=== PATIENT | male | born 1990 | race Caucasian/White ===

== ENCOUNTER 2018-07-04 14:25 | Emergency (ER) | payer MEDICAID ==
[~2018-07-04] VITALS: Ht 188 cm; Wt 80.0 kg
[~2018-07-04 14:25] MED LIST: FLUT16SP2 NS; NO HOME MEDS
[2018-07-04 14:29] VITALS: BP 135/72
[2018-07-04] MEDS ORDERED: LIDOcaine 1% w/epiNEPHrine 1:200,000 30ml vial IM ONE (15:20)
[2018-07-04] MEDS ORDERED: AMOX-580 PO (15:44)
[2018-07-04] MEDS ORDERED: IBUP-1984 PO (15:44)
--- NOTE | 2018-07-04 15:59 | NUR ---
PT UP FOR TX AND DC. ASKED PRIMARY RN IF PT IS READY FOR DC AND WAS TOLD YES. WALKED INTO PT'S ROOM AND FOUND THAT PROVIDER WAS JUST STARTING PROCEDURE. PRIMARY RN NOTIFIED AND PT WAS PLACED ON A PRODEDURE WAIT
== END 2018-07-04 16:09 | disposition home or self-care (01) ==
LOC: ER 14:26
DX: K13.0 Diseases of lips (principal); F12.90 Cannabis use, unspecified, uncomplicated; J45.909 Unspecified asthma, uncomplicated; Z79.899 Other long term (current) drug therapy
CPT/HCPCS: 10160; 99284; J3490; 10060; 99283

== ENCOUNTER 2020-11-17 23:51 | Inpatient (IN) | payer MEDICAID ==
[~2020-11-17] VITALS: Ht 177.8 cm; Wt 81.8 kg
[2020-11-18] MEDS ORDERED: cefepime 1GM/NS ADD-VANTAGE 100 ML IV ONE (00:23)
[2020-11-18] MEDS ORDERED: vancomycin/NS 1 GM ADD-VANTAGE 250 ML IV ONE (00:25)
[2020-11-18] MEDS ORDERED: iohexol 350MG/ML 100ml bottle IV ONE (00:25)
[2020-11-18 00:54] LABS: ALANINE AMINOTRANSFERASE 29 U/L (12-78); ALBUMIN 2.9 G/DL (3.4-5.0); ALBUMIN/GLOBULIN RATIO 0.7 (1.1-1.5); ALKALINE PHOSPHATASE 97 IU/L (46-116); ANION GAP 15 (8-16); ASPARTATE AMINO TRANSFERASE 29 U/L (10-37); BILIRUBIN,TOTAL 0.4 MG/DL (0.1-1.0); BLOOD UREA NITROGEN 8 MG/DL (7-18); CALCIUM 8.8 MG/DL (8.5-10.1); CHLORIDE 105 MMOL/L (99-107); CREATININE 0.89 MG/DL (0.60-1.10); GLUCOSE 100 MG/DL (70-104); POTASSIUM 4.1 MMOL/L (3.5-5.1); SODIUM 137 MMOL/L (135-145); TOTAL CARBON DIOXIDE 17.4 MMOL/L (24-32); TOTAL PROTEIN 7.2 G/DL (6.4-8.2); eGFR > 90 ML/MIN
[2020-11-18 01:03] LABS: HEMOGLOBIN 13.8 g/dl (14.0-17.9); MONOCYTES # (AUTO) 0.9 X10'3 (0-0.9); WHITE BLOOD COUNT 9.6 X10'3 (4.5-11.0)
[2020-11-18 01:05] LABS: BASOPHILS # (AUTO) 0.1 X10'3 (0-0.2); BASOPHILS % (AUTO) 0.5 % (0-1); EOSINOPHILS % (AUTO) 0.5 % (0-6); HEMATOCRIT 40.6 % (42.0-52.0); LYMPHOCYTES # (AUTO) 3.4 X10'3 (1.1-4.8); LYMPHOCYTES % (AUTO) 35.2 % (21-51); MEAN CORPUSCULAR HEMOGLOBIN 31.8 PG (27.0-31.0); MEAN CORPUSCULAR VOLUME 93.6 FL (78-98); MONOCYTES % (AUTO) 9.4 % (2-12); NEUTROPHILS # (AUTO) 5.2 X10'3 (1.8-7.7); NEUTROPHILS % (AUTO) 54.4 % (42-75); PLATELET COUNT 326 X10'3 (140-440); RED BLOOD COUNT 4.34 X10'6 (4.70-6.10); RED CELL DISTRIBUTION WIDTH 13.3 % (11.5-14.5)
[2020-11-18 01:33] LABS: PARTIAL THROMBOPLASTIN TIME 30 SECONDS (22-32)
[2020-11-18] MEDS ORDERED: NO HOME MEDS (02:44)
[2020-11-18] MEDS ORDERED: mag hydrox/Alum hydrox/simeth 30ml oral suspension PO PRN (03:40)
[2020-11-18] MEDS ORDERED: thiamine 100mg/ml 2ml inj. IM ONE (03:40)
[2020-11-18] MEDS ORDERED: potassium Cl 40MEQ/1/2NS 520ml 520 ML IV PRN ×2 (03:40)
[2020-11-18] MEDS ORDERED: acetaminophen 325mg tablet PO PRN (03:40)
[2020-11-18] MEDS ORDERED: potassium Cl 20 mEq SR tablet PO PRN ×2 (03:40)
[2020-11-18] MEDS ORDERED: magnesium hydroxide 30ml (MOM) UD suspension PO PRN (03:40)
[2020-11-18] MEDS ORDERED: ondansetron/PF 4mg/2ml inj IV PRN (03:40)
[2020-11-18] MEDS ORDERED: LORazepam 2 mg/ml vial IV PRN (03:45)
[2020-11-18] MEDS: normal saline 1000ml 1,000 ML IV SCH ×3 (03:54→21:44)
[2020-11-18] MEDS: morphine 2 MG/ML inj. syringe IV PRN (04:08)
[2020-11-18] MEDS: docusate sod 100mg capsule PO SCH ×2 (08:00→20:00)
[2020-11-18] MEDS: K and/or MAG REPLACEMENT MC SCH ×2 (08:00→20:00)
[2020-11-18] MEDS ORDERED: PERFLUTREN PROTEIN-A MICROSPHR (Optison) 0.22 MG/ML 3ML VIAL IV ONE (08:00)
--- NOTE | 2020-11-18 08:06 | NUR ---
WAITING FOR ROCDEBBYHIN FROM PHARMACY PER MARÍA IT IS GOING TO TAKE HALF AN HOUR TO GET READY , THEY DIDN'T HAD TECH LAST NIGHT AND THEY ARE RUNNING LATE.
--- NOTE | 2020-11-18 08:18 | NUR ---
NOTIFIED CHARGE NURSE THAT SURGICAL IS NOT ACCEPTING THE PT PER COUNTY AGENT ORDERS.
[2020-11-18] MEDS: CefTRIAXone/D5W-Rocephin 1gm 50 ML IV SCH (09:22)
--- NOTE | 2020-11-18 10:25 | NUR ---
optison not to be given as it would be used for echo at night time. Thats why non admin the med.
[2020-11-18 11:00] VITALS: BP 109/77
[2020-11-18 11:09] LABS: URINE AMPHETAMINE SCREEN POSITIVE (Neg); URINE BARBITUATE SCREEN NEGATIVE (Neg); URINE BENZODIAZEPINES SCREEN NEGATIVE (Neg); URINE CANNABINOID SCREEN NEGATIVE (Neg); URINE COCAINE SCREEN NEGATIVE (Neg); URINE METHADONE SCREEN NEGATIVE (Neg); URINE OPIATE SCREEN POSITIVE (Neg); URINE PHENCYCLIDINE SCREEN NEGATIVE (Neg)
[2020-11-18 11:32] VITALS: BP 113/70
--- NOTE | 2020-11-18 12:20 | NUR ---
PAGER ID: [phone] MESSAGE: Kortney Burdick 340B Pt. wants to eat. is he going to sx today? Also states he has not used meth but takes nonprescribed Adderall. Will order SS consult. RT tx? lactic redraw? Christina [phone]
[2020-11-18 18:00] VITALS: BP 114/78
--- NOTE | 2020-11-18 18:37 | NUR ---
Patient in room [facility]. I have received report from SALEEM Vasquez and had the opportunity to ask questions and assume patient care.
[2020-11-18] MEDS: guaiFENesin/codeine phos 10ml UD oral syrup PO PRN (22:34)
--- NOTE | 2020-11-18 23:24 | NUR ---
Student Medication Administration: For this medication-pass time frame, all medication were reviewed, dispensed, administered and documented per hospital policy by Lorin WATERS [facility]..
[2020-11-19] VITALS (7 sets, daily range): BP systolic 99–119; BP diastolic 63–78
[2020-11-19 06:04] LABS: BASOPHILS % (AUTO) 0.3 % (0-1); EOSINOPHILS # (AUTO) 0.1 X10'3 (0-0.9); EOSINOPHILS % (AUTO) 0.8 % (0-6); HEMATOCRIT 40.1 % (42.0-52.0); HEMOGLOBIN 13.3 g/dl (14.0-17.9); LYMPHOCYTES # (AUTO) 2.6 X10'3 (1.1-4.8); LYMPHOCYTES % (AUTO) 28.7 % (21-51); MEAN CORPUSCULAR HEMOGLOBIN 31.9 PG (27.0-31.0); MEAN CORPUSCULAR HGB CONC 33.2 g/dL (33.0-36.5); MEAN CORPUSCULAR VOLUME 96.1 FL (78-98); MEAN PLATELET VOLUME 8.2 FL (7.4-10.4); MONOCYTES % (AUTO) 11.2 % (2-12); NEUTROPHILS # (AUTO) 5.3 X10'3 (1.8-7.7); PLATELET COUNT 318 X10'3 (140-440); RED BLOOD COUNT 4.17 X10'6 (4.70-6.10); RED CELL DISTRIBUTION WIDTH 13.4 % (11.5-14.5)
--- NOTE | 2020-11-19 06:08 | NUR ---
Problems reprioritized. Patient report given, questions answered & plan of care reviewed with SALEEM Blue.
[2020-11-19 06:23] LABS: ALANINE AMINOTRANSFERASE 26 U/L (12-78); ALBUMIN 2.5 G/DL (3.4-5.0); ALBUMIN/GLOBULIN RATIO 0.7 (1.1-1.5); ALKALINE PHOSPHATASE 79 IU/L (46-116); ANION GAP 10 (8-16); ASPARTATE AMINO TRANSFERASE 23 U/L (10-37); BILIRUBIN,TOTAL 0.6 MG/DL (0.1-1.0); BLOOD UREA NITROGEN 10 MG/DL (7-18); BUN/CREATININE RATIO 11.8 (5.4-32.0); CALCIUM 8.5 MG/DL (8.5-10.1); CHLORIDE 105 MMOL/L (99-107); CREATININE 0.85 MG/DL (0.60-1.10); GLUCOSE 85 MG/DL (70-104); POTASSIUM 3.9 MMOL/L (3.5-5.1); SODIUM 136 MMOL/L (135-145); TOTAL CARBON DIOXIDE 21.3 MMOL/L (24-32); TOTAL PROTEIN 6.3 G/DL (6.4-8.2); eGFR > 90 ML/MIN
--- NOTE | 2020-11-19 06:30 | NUR ---
Patient in room [facility] 340. I have received report from Hong MONGE and had the opportunity to ask questions and assume patient care.
[2020-11-19] MEDS: K and/or MAG REPLACEMENT MC SCH ×2 (08:00→20:00)
[2020-11-19] MEDS: docusate sod 100mg capsule PO SCH ×2 (08:00→20:00)
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
[2020-11-19] MEDS: CefTRIAXone/D5W-Rocephin 1gm 50 ML IV SCH (08:54)
[2020-11-19] MEDS ORDERED: furosemide 20 MG/2 ML vial IV ONE (11:25)
[2020-11-19 11:57] LABS: BODY FLUID PH (NON-PLEURAL) 7.5
[2020-11-19 12:11] LABS: GLUCOSE,BODY FLUID 117 MG/DL
[2020-11-19] MEDS: morphine 2 MG/ML inj. syringe IV PRN ×2 (12:25→20:36)
[2020-11-19 13:26] LABS: TOTAL PROTEIN,BODY FLUID < 2.0 G/DL
[2020-11-19 14:07] LABS: BFAPPEAR HAZY
[2020-11-19 14:08] LABS: BFCOLOR YELLOW; BFVOLUME 60 ML
[2020-11-19 14:09] LABS: BF RBC COUNT 769 /CU MM; BF WBC COUNT 84 /CU MM (0-1000); LYMPHOCYTES,BODY FLUID 68 %; MONOCYTES,BODY FLUID 16 %; NEUTROPHILS,BODY FLUID 16 %
[2020-11-19 14:10] LABS: BF MESOTHELIAL CELLS FEW
--- NOTE | 2020-11-19 18:26 | NUR ---
Problems reprioritized. Patient report given, questions answered & plan of care reviewed with Hong MONGE.
--- NOTE | 2020-11-19 18:34 | NUR ---
Patient in room [facility] 340. I have received report from SALEEM Blue and had the opportunity to ask questions and assume patient care.
[2020-11-19] MEDS: carVEDilol 3.125mg tablet PO SCH (20:26)
[2020-11-19] MEDS: guaiFENesin/codeine phos 10ml UD oral syrup PO PRN (20:26)
[2020-11-19] MEDS: furosemide 20 MG/2 ML vial IV SCH (20:30)
[2020-11-20 00:51] VITALS: BP 104/59
--- NOTE | 2020-11-20 06:07 | NUR ---
Problems reprioritized. Patient report given, questions answered & plan of care reviewed with SALEEM Borden.
[2020-11-20 06:33] LABS: BASOPHILS % (AUTO) 0.2 % (0-1); EOSINOPHILS # (AUTO) 0.1 X10'3 (0-0.9); EOSINOPHILS % (AUTO) 0.8 % (0-6); HEMATOCRIT 41.8 % (42.0-52.0); HEMOGLOBIN 14.4 g/dl (14.0-17.9); LYMPHOCYTES # (AUTO) 1.7 X10'3 (1.1-4.8); LYMPHOCYTES % (AUTO) 20.4 % (21-51); MEAN CORPUSCULAR HEMOGLOBIN 32.8 PG (27.0-31.0); MEAN CORPUSCULAR HGB CONC 34.5 g/dL (33.0-36.5); MEAN PLATELET VOLUME 8.2 FL (7.4-10.4); MONOCYTES # (AUTO) 0.9 X10'3 (0-0.9); MONOCYTES % (AUTO) 10.5 % (2-12); NEUTROPHILS # (AUTO) 5.8 X10'3 (1.8-7.7); NEUTROPHILS % (AUTO) 68.1 % (42-75); PLATELET COUNT 341 X10'3 (140-440); RED CELL DISTRIBUTION WIDTH 13.4 % (11.5-14.5); WHITE BLOOD COUNT 8.5 X10'3 (4.5-11.0)
--- NOTE | 2020-11-20 06:45 | NUR ---
Patient in room [facility] 340B. I have received report from SALEEM JACOBS and had the opportunity to ask questions and assume patient care.
[2020-11-20 07:00] VITALS: BP 106/64
[2020-11-20 07:03] LABS: ALANINE AMINOTRANSFERASE 23 U/L (12-78); ALBUMIN 2.6 G/DL (3.4-5.0); ALBUMIN/GLOBULIN RATIO 0.6 (1.1-1.5); ALKALINE PHOSPHATASE 75 IU/L (46-116); ANION GAP 11 (8-16); ASPARTATE AMINO TRANSFERASE 19 U/L (10-37); BILIRUBIN,TOTAL 0.5 MG/DL (0.1-1.0); BLOOD UREA NITROGEN 9 MG/DL (7-18); BUN/CREATININE RATIO 10.1 (5.4-32.0); CALCIUM 8.9 MG/DL (8.5-10.1); CHLORIDE 106 MMOL/L (99-107); CREATININE 0.89 MG/DL (0.60-1.10); GLUCOSE 100 MG/DL (70-104); POTASSIUM 3.9 MMOL/L (3.5-5.1); SODIUM 142 MMOL/L (135-145); TOTAL CARBON DIOXIDE 24.7 MMOL/L (24-32); TOTAL PROTEIN 6.7 G/DL (6.4-8.2); eGFR > 90 ML/MIN
[2020-11-20] MEDS: furosemide 20 MG/2 ML vial IV SCH ×3 (08:00→20:00)
[2020-11-20] MEDS: K and/or MAG REPLACEMENT MC SCH ×2 (08:00→20:00)
[2020-11-20] MEDS: docusate sod 100mg capsule PO SCH ×2 (08:00→20:00)
[2020-11-20] MEDS: carVEDilol 3.125mg tablet PO SCH ×3 (08:00→20:00)
[2020-11-20 09:13] VITALS: BP 98/60
[2020-11-20] MEDS: CefTRIAXone/D5W-Rocephin 1gm 50 ML IV SCH (09:20)
[2020-11-20 11:02] LABS: TROPONIN I < 0.04 NG/ML (0.0-0.05)
[2020-11-20 12:00] VITALS: BP 100/58
[2020-11-20] MEDS: morphine 2 MG/ML inj. syringe IV PRN ×2 (12:07→20:09)
[2020-11-20 15:05] VITALS: BP 103/58
--- NOTE | 2020-11-20 18:45 | NUR ---
Problems reprioritized. Patient report given, questions answered & plan of care reviewed with SALEEM LONG.
[2020-11-20 20:00] VITALS: BP 96/56
[2020-11-20] MEDS: lactobacillus rhamnosus 10,000 MMU CELLS/CAPSULE PO SCH (20:00)
[2020-11-21] VITALS: BP 100/61
--- NOTE | 2020-11-21 06:10 | NUR ---
Patient in room [facility] 340B. I have received report from SALEEM LONG and had the opportunity to ask questions and assume patient care.
--- NOTE | 2020-11-21 06:11 | NUR ---
Problems reprioritized. Patient report given, questions answered & plan of care reviewed with Suha MONGE. Addendum: 11/21/20 at 0611 by Tess Gomes RN Amended: Links added.
[2020-11-21 06:14] LABS: ALANINE AMINOTRANSFERASE 22 U/L (12-78); ALBUMIN 2.6 G/DL (3.4-5.0); ALBUMIN/GLOBULIN RATIO 0.6 (1.1-1.5); ALKALINE PHOSPHATASE 69 IU/L (46-116); ANION GAP 10 (8-16); ASPARTATE AMINO TRANSFERASE 13 U/L (10-37); BILIRUBIN,TOTAL 0.5 MG/DL (0.1-1.0); BLOOD UREA NITROGEN 9 MG/DL (7-18); BUN/CREATININE RATIO 10.8 (5.4-32.0); CALCIUM 8.4 MG/DL (8.5-10.1); CHLORIDE 103 MMOL/L (99-107); CREATININE 0.83 MG/DL (0.60-1.10); GLUCOSE 97 MG/DL (70-104); POTASSIUM 3.5 MMOL/L (3.5-5.1); SODIUM 138 MMOL/L (135-145); TOTAL CARBON DIOXIDE 24.7 MMOL/L (24-32); TOTAL PROTEIN 6.9 G/DL (6.4-8.2); eGFR > 90 ML/MIN
[2020-11-21 06:22] LABS: BASOPHILS % (AUTO) 0.3 % (0-1); EOSINOPHILS # (AUTO) 0.1 X10'3 (0-0.9); EOSINOPHILS % (AUTO) 0.9 % (0-6); HEMATOCRIT 40.8 % (42.0-52.0); HEMOGLOBIN 13.8 g/dl (14.0-17.9); LYMPHOCYTES % (AUTO) 29.1 % (21-51); MEAN CORPUSCULAR HEMOGLOBIN 32.3 PG (27.0-31.0); MEAN CORPUSCULAR HGB CONC 33.9 g/dL (33.0-36.5); MEAN CORPUSCULAR VOLUME 95.1 FL (78-98); MEAN PLATELET VOLUME 8.5 FL (7.4-10.4); MONOCYTES # (AUTO) 0.8 X10'3 (0-0.9); MONOCYTES % (AUTO) 12.1 % (2-12); NEUTROPHILS # (AUTO) 3.9 X10'3 (1.8-7.7); NEUTROPHILS % (AUTO) 57.6 % (42-75); PLATELET COUNT 328 X10'3 (140-440); RED BLOOD COUNT 4.29 X10'6 (4.70-6.10); RED CELL DISTRIBUTION WIDTH 13.2 % (11.5-14.5); WHITE BLOOD COUNT 6.8 X10'3 (4.5-11.0)
[2020-11-21 07:00] VITALS: BP 109/67
[2020-11-21] MEDS: K and/or MAG REPLACEMENT MC SCH ×2 (08:00→20:00)
[2020-11-21] MEDS: furosemide 20 MG/2 ML vial IV SCH ×2 (09:49→20:32)
[2020-11-21] MEDS: carVEDilol 3.125mg tablet PO SCH ×2 (09:52→20:32)
[2020-11-21] MEDS: lactobacillus rhamnosus 10,000 MMU CELLS/CAPSULE PO SCH ×2 (09:52→20:32)
[2020-11-21] MEDS: docusate sod 100mg capsule PO SCH ×2 (09:52→20:32)
[2020-11-21] MEDS: CefTRIAXone/D5W-Rocephin 1gm 50 ML IV SCH (09:54)
[2020-11-21 11:00] VITALS: BP 95/62
[2020-11-21] MEDS: morphine 2 MG/ML inj. syringe IV PRN ×2 (13:26→22:51)
[2020-11-21 18:00] VITALS: BP 99/60
--- NOTE | 2020-11-21 18:22 | NUR ---
Problems reprioritized. Patient report given, questions answered & plan of care reviewed with SALEEM CHE.
[2020-11-22] VITALS: BP 101/58
[2020-11-22 06:26] LABS: BASOPHILS % (AUTO) 0.3 % (0-1); EOSINOPHILS # (AUTO) 0.1 X10'3 (0-0.9); EOSINOPHILS % (AUTO) 0.9 % (0-6); HEMATOCRIT 41.5 % (42.0-52.0); LYMPHOCYTES # (AUTO) 2.5 X10'3 (1.1-4.8); MEAN CORPUSCULAR HEMOGLOBIN 32.1 PG (27.0-31.0); MEAN CORPUSCULAR HGB CONC 33.7 g/dL (33.0-36.5); MEAN CORPUSCULAR VOLUME 95.2 FL (78-98); MEAN PLATELET VOLUME 8.5 FL (7.4-10.4); MONOCYTES # (AUTO) 0.7 X10'3 (0-0.9); MONOCYTES % (AUTO) 8.6 % (2-12); NEUTROPHILS % (AUTO) 60.2 % (42-75); PLATELET COUNT 333 X10'3 (140-440); RED BLOOD COUNT 4.36 X10'6 (4.70-6.10); RED CELL DISTRIBUTION WIDTH 13.3 % (11.5-14.5); WHITE BLOOD COUNT 8.2 X10'3 (4.5-11.0)
[2020-11-22 06:37] LABS: ALANINE AMINOTRANSFERASE 26 U/L (12-78); ALBUMIN 2.7 G/DL (3.4-5.0); ALBUMIN/GLOBULIN RATIO 0.6 (1.1-1.5); ALKALINE PHOSPHATASE 67 IU/L (46-116); ANION GAP 10 (8-16); ASPARTATE AMINO TRANSFERASE 18 U/L (10-37); BILIRUBIN,TOTAL 0.3 MG/DL (0.1-1.0); BLOOD UREA NITROGEN 11 MG/DL (7-18); BUN/CREATININE RATIO 11.7 (5.4-32.0); CALCIUM 8.6 MG/DL (8.5-10.1); CHLORIDE 105 MMOL/L (99-107); CREATININE 0.94 MG/DL (0.60-1.10); GLUCOSE 101 MG/DL (70-104); POTASSIUM 3.9 MMOL/L (3.5-5.1); SODIUM 141 MMOL/L (135-145); TOTAL CARBON DIOXIDE 26.3 MMOL/L (24-32); TOTAL PROTEIN 6.9 G/DL (6.4-8.2); eGFR > 90 ML/MIN
--- NOTE | 2020-11-22 07:01 | NUR ---
Problems reprioritized. Patient report given, questions answered & plan of care reviewed with Aleshia MONGE.
--- NOTE | 2020-11-22 07:07 | NUR ---
Patient in room [facility] 340. I have received report from Mitesh MONGE and had the opportunity to ask questions and assume patient care.
[2020-11-22] MEDS ORDERED: pantoprazole 40mg Tablet.DR PO SCH (07:30)
[2020-11-22 08:00] VITALS: BP 97/56
[2020-11-22] MEDS: K and/or MAG REPLACEMENT MC SCH (08:00)
[2020-11-22] MEDS: lisinopril 2.5mg tablet PO SCH (08:00)
[2020-11-22 08:50] VITALS: BP 106/54
[2020-11-22] MEDS: CefTRIAXone/D5W-Rocephin 1gm 50 ML IV SCH (08:58)
[2020-11-22] MEDS: docusate sod 100mg capsule PO SCH (08:59)
[2020-11-22] MEDS: carVEDilol 3.125mg tablet PO SCH (08:59)
[2020-11-22] MEDS: lactobacillus rhamnosus 10,000 MMU CELLS/CAPSULE PO SCH (08:59)
[2020-11-22] MEDS: furosemide 20 MG/2 ML vial IV SCH (08:59)
[2020-11-22 11:00] VITALS: BP 106/58
[2020-11-22 12:00] VITALS: BP 98/60
--- NOTE | 2020-11-22 13:09 | NUR ---
PAGER ID: [phone] MESSAGE: re: 340B, Heavenly Kortney Held pt's 0800 Lisinopril, Carvedilol and Lasix BP 97/56, HR-89. Rechecked at 0850, BP 106/54, HR 86, gave Lasix and Carvedilol, held Lisinopril til noon. 1200 BP 98/60, HR 98. Orders? thank you, Aleshia [id number]
--- NOTE | 2020-11-22 13:50 | NUR ---
PAGER ID: [phone] MESSAGE: [phone] Lynnette Burdick is wanting to be discharged. He wants to know if the life vest can be completed Outpatient. Cary [phone]
--- NOTE | 2020-11-22 14:22 | NUR ---
PAGER ID: [phone] MESSAGE: [phone] Nery Burdick Wants pain medication, BP 97/58. Ok to give MS ? Cary [phone]
[2020-11-22] MEDS ORDERED: HYDROcodone/acetaminophen 5mg/325mg tablet PO PRN (14:35)
--- NOTE | 2020-11-22 15:05 | NUR ---
Spoke with Dr Jordan, orders received to give Lisinopril 0800 PO dose now and [place] 5 for pain management. Attempted to give meds to pt, pt refused. Pt talking about going home and wants to speak with Dr Jordan. MD notified. software licensing analyst notified. Will continue to monitor.
--- NOTE | 2020-11-22 15:10 | NUR ---
PAGER ID: [phone] MESSAGE: re: room 340B, Kortney Burdick Pt would like to speak with you, and refused his Lisinopril PO and pain meds [place] 5, yet c/o pain. Please call. Thank you, Aleshia [phone] Will continue to monitor.
--- NOTE | 2020-11-22 15:59 | NUR ---
Pt left AMA after speaking with acid cutter. aware. PIV d/c'd cath intact. Pt states he has all personal belongings and walked off the floor, stating he's leaving the hospital.
== END 2020-11-22 15:57 | disposition left against medical advice (07) | DRG 194 ==
LOC: ER 23:51 → ED HOLD 11-18 03:42 → SUR 3N 11-18 10:50
PROVIDERS: ADMIT Internal Medicine; ATTEND Family Medicine
PROC: B32T1ZZ Computerized Tomography (CT Scan) of Left Pulmonary Artery using Low Osmolar Contrast (ICD-10-PCS; 2020-11-18)
PROC: B3201ZZ Computerized Tomography (CT Scan) of Thoracic Aorta using Low Osmolar Contrast (ICD-10-PCS; 2020-11-18)
PROC: B32S1ZZ Computerized Tomography (CT Scan) of Right Pulmonary Artery using Low Osmolar Contrast (ICD-10-PCS; 2020-11-18)
PROC: 0W993ZZ Drainage of Right Pleural Cavity, Percutaneous Approach (ICD-10-PCS; principal; 2020-11-19)
PROC: 0W993ZX Drainage of Right Pleural Cavity, Percutaneous Approach, Diagnostic (ICD-10-PCS; 2020-11-19)
DX: I50.23 Acute on chronic systolic (congestive) heart failure (principal); J91.8 Pleural effusion in other conditions classified elsewhere; I27.81 Cor pulmonale (chronic); I42.7 Cardiomyopathy due to drug and external agent; F17.210 Nicotine dependence, cigarettes, uncomplicated; J43.0 Unilateral pulmonary emphysema [MacLeod's syndrome]; F10.10 Alcohol abuse, uncomplicated; Y90.9 Presence of alcohol in blood, level not specified; F11.10 Opioid abuse, uncomplicated; R04.2 Hemoptysis; Z20.822 Contact with and (suspected) exposure to COVID-19; Z53.29 Procedure and treatment not carried out because of patient's decision for other reasons; F15.13 Other stimulant abuse with withdrawal; J45.909 Unspecified asthma, uncomplicated; Z71.51 Drug abuse counseling and surveillance of drug abuser; Z71.41 Alcohol abuse counseling and surveillance of alcoholic; Z71.6 Tobacco abuse counseling
CPT/HCPCS: 32555; 36415; 71045; 71046; 71275; 80053; 80305; 82945; 83605; 83880; 83986; 84157; 84484; 85025; 85610; 85730; 87040; 87070; 87081; 87635; 89051; 93005; 93306; 96365; 99291; 99292; G0378; J0692; J0696; J1940; J2270; J2405; J3370; J3411; J7030; Q9967

== ENCOUNTER 2021-01-02 18:57 | Emergency (ER) | payer MEDICAID ==
[~2021-01-02] VITALS: Ht 188 cm; Wt 81.8 kg
[~2021-01-02 18:57] MED LIST changes: -FLUT16SP2 NS
[2021-01-02 19:55] LABS: BASOPHILS % (AUTO) 0.2 % (0-1); EOSINOPHILS % (AUTO) 0.1 % (0-6); HEMATOCRIT 44.6 % (42.0-52.0); LYMPHOCYTES # (AUTO) 2.4 X10'3 (1.1-4.8); LYMPHOCYTES % (AUTO) 26.5 % (21-51); MEAN CORPUSCULAR HGB CONC 33.6 g/dL (33.0-36.5); MEAN CORPUSCULAR VOLUME 92.5 FL (78-98); MEAN PLATELET VOLUME 8.3 FL (7.4-10.4); MONOCYTES % (AUTO) 10.5 % (2-12); NEUTROPHILS # (AUTO) 5.7 X10'3 (1.8-7.7); NEUTROPHILS % (AUTO) 62.7 % (42-75); PLATELET COUNT 257 X10'3 (140-440); RED BLOOD COUNT 4.82 X10'6 (4.70-6.10); RED CELL DISTRIBUTION WIDTH 14.1 % (11.5-14.5); WHITE BLOOD COUNT 9.1 X10'3 (4.5-11.0)
[2021-01-02] MEDS ORDERED: ondansetron 4mg rapidly disintigrating tab PO ONE (20:10)
[2021-01-02 20:19] LABS: ALANINE AMINOTRANSFERASE 914 U/L (12-78); ALBUMIN 2.8 G/DL (3.4-5.0); ALBUMIN/GLOBULIN RATIO 0.7 (1.1-1.5); ALKALINE PHOSPHATASE 98 IU/L (46-116); ANION GAP 13 (8-16); ASPARTATE AMINO TRANSFERASE 680 U/L (10-37); BLOOD UREA NITROGEN 17 MG/DL (7-18); BUN/CREATININE RATIO 13.2 (5.4-32.0); CALCIUM 8.5 MG/DL (8.5-10.1); CHLORIDE 92 MMOL/L (99-107); CREATININE 1.29 MG/DL (0.60-1.10); GLUCOSE 107 MG/DL (70-104); POTASSIUM 4.3 MMOL/L (3.5-5.1); SODIUM 128 MMOL/L (135-145); TOTAL CARBON DIOXIDE 23.3 MMOL/L (24-32); TOTAL PROTEIN 6.8 G/DL (6.4-8.2); eGFR 66 ML/MIN
[2021-01-02] MEDS ORDERED: iohexol 350MG/ML 100ml bottle IV ONE (20:58)
[2021-01-02] MEDS ORDERED: pantoprazole 40 MG vial IV ONE (22:05)
[2021-01-02] MEDS ORDERED: sodium chloride 1gm tablet PO ONE (22:05)
[2021-01-02] MEDS ORDERED: famotidine/PF 10 mg/ml inj IV ONE (22:05)
[2021-01-02] MEDS ORDERED: ketorolac trometh. 30mg/ml inj. IV ONE (22:10)
[2021-01-02] MEDS ORDERED: LORazepam 2 mg/ml vial IV ONE (22:15)
[2021-01-02] MEDS ORDERED: ONDA4TAB6 PO (22:30)
[2021-01-02] MEDS ORDERED: orphenadrine citrate 60mg/2ml inj. IM ONE (22:40)
[2021-01-02 23:00] VITALS: BP 123/70
[2021-01-02 23:48] LABS: URINE AMPHETAMINE SCREEN NEGATIVE (Neg); URINE BARBITUATE SCREEN NEGATIVE (Neg); URINE BENZODIAZEPINES SCREEN NEGATIVE (Neg); URINE CANNABINOID SCREEN POSITIVE (Neg); URINE COCAINE SCREEN POSITIVE (Neg); URINE METHADONE SCREEN NEGATIVE (Neg); URINE OPIATE SCREEN NEGATIVE (Neg); URINE PHENCYCLIDINE SCREEN NEGATIVE (Neg)
== END 2021-01-02 23:22 | disposition home or self-care (01) ==
LOC: ER 18:57
DX: R07.89 Other chest pain (principal); Z20.822 Contact with and (suspected) exposure to COVID-19; R10.84 Generalized abdominal pain; R06.02 Shortness of breath; R74.8 Abnormal levels of other serum enzymes; R11.0 Nausea; R14.0 Abdominal distension (gaseous); I50.9 Heart failure, unspecified; J45.909 Unspecified asthma, uncomplicated; F12.90 Cannabis use, unspecified, uncomplicated; Z98.890 Other specified postprocedural states; Z72.89 Other problems related to lifestyle; Z88.8 Allergy status to other drugs, medicaments and biological substances; Z91.018 Allergy to other foods; Z79.899 Other long term (current) drug therapy
CPT/HCPCS: 36415; 71045; 71275; 74177; 76700; 80053; 80305; 83880; 84145; 84484; 85025; 87635; 93005; 96372; 96374; 96375; 99285; C9803; J1885; J2060; J2360; J3490; Q9967

== ENCOUNTER 2021-10-09 23:02 | Emergency (ER) | payer MEDICAID ==
[~2021-10-09 23:02] MED LIST changes: +ONDA4TAB6 PO
== END 2021-10-10 00:49 | disposition left against medical advice (07) ==
LOC: ER 23:02
DX: R55 Syncope and collapse (principal); Z53.21 Procedure and treatment not carried out due to patient leaving prior to being seen by health care provider

== ENCOUNTER 2022-10-29 20:22 | Emergency (ER) | payer MEDICAID ==
[~2022-10-29] VITALS: Ht 190.5 cm; Wt 105.0 kg
[2022-10-29 20:51] VITALS: TEMP 98.1
[2022-10-30] MEDS ORDERED: SPIR25TA5 PO (02:20)
[2022-10-30] MEDS ORDERED: LAN0.125T PO (02:20)
[2022-10-30] MEDS ORDERED: NALT50TA PO (02:20)
[2022-10-30] MEDS ORDERED: APIX5TAB3 PO (02:20)
[2022-10-30] MEDS ORDERED: BUME1TAB34 PO (02:20)
[2022-10-30] MEDS ORDERED: PANT40TA54 PO (02:20)
[2022-10-30] MEDS ORDERED: LISI5TAB22 PO (02:20)
[2022-10-30] MEDS ORDERED: METO-384 PO (02:20)
[2022-10-30] MEDS ORDERED: ROSU10TA28 PO (02:20)
[2022-10-30 05:03] VITALS: BP 131/69; PULSE 60; RESP 16; O2SAT 98
== END 2022-10-30 05:06 | disposition home or self-care (01) ==
LOC: ER 20:23
DX: S83.92XA Sprain of unspecified site of left knee, initial encounter (principal); I50.9 Heart failure, unspecified; J45.909 Unspecified asthma, uncomplicated; F17.200 Nicotine dependence, unspecified, uncomplicated; F12.90 Cannabis use, unspecified, uncomplicated; Z72.89 Other problems related to lifestyle; Z79.01 Long term (current) use of anticoagulants; Z79.899 Other long term (current) drug therapy; Z91.018 Allergy to other foods; Z88.8 Allergy status to other drugs, medicaments and biological substances; X50.1XXA Overexertion from prolonged static or awkward postures, initial encounter; Y93.89 Activity, other specified; Y92.89 Other specified places as the place of occurrence of the external cause; Y99.8 Other external cause status
CPT/HCPCS: 29505; 73564; 99284

== ENCOUNTER 2024-10-22 12:15 | Emergency (ER) | payer MEDICAID ==
[~2024-10-22] VITALS: Ht 190.5 cm; Wt 97.6 kg
[~2024-10-22 12:15] MED LIST changes: +APIX5TAB3 PO; +BUME1TAB45 PO; +LAN0.125T PO; +LISI5TAB22 PO; +METO-384 PO; +NALT50TA5 PO; -NO HOME MEDS; -ONDA4TAB6 PO; +PANT40TA54 PO; +ROSU10TA72 PO; +SPIR25TA5 PO
[2024-10-22 12:32] VITALS: BP 124/67; PULSE 86; RESP 16; TEMP 98.2; O2SAT 98
--- NOTE | 2024-10-22 13:26 | RADIOLOGY REPORT ---
EXAM: DI KNEE, COMP 4 VW MIN CLINICAL INDICATION: KNEE PAIN TECHNIQUE: DI KNEE, COMP 4 VW MIN Comparison: DI KNEE, COMP 4 VW MIN on DOS: 10/29/22 FINDINGS/IMPRESSION: There is no evidence of acute fracture or dislocation. ACL reconstruction. The alignment is anatomical. There is no radiopaque foreign body.
--- NOTE | 2024-10-22 15:03 | Physician Documentation ---
History of Present Illness ~ Chief Complaint: Knee Pain Stated Complaint: LT KNEE PAIN Time Seen by MD: 14:38 Primary Medical Doctor: [facility] HPI Patient is a 34-year-old male that presents to the emergency department for evaluation of left-sided knee pain. Patient reports that he was playing basketball when he slid and twisted his knee. Patient reports he has a previous history of surgical repair to the knee he sees an orthopedist here patient also regional. Patient is currently placed in a brace and use his crutches that were provided from his previous surgery. She reports that he is concerned that he has damage the previous repair. Tetanus witin 5 years: No Medication Reconciliation Allergies: Coded Allergies: carvedilol (Verified Allergy, Unknown, 10/22/24) pineapple (Verified Allergy, Unknown, 10/22/24) Uncoded Allergies: SHELLFISH (Allergy, Unknown, 01/02/21) Scheduled Apixaban (Eliquis), 1 TAB PO BID, (Reported) Bumetanide (Bumetanide), 1 TAB PO BID, (Reported) Digoxin (Digitek), 1 TAB PO DAILY, (Reported) Lisinopril (Lisinopril), 1 TAB PO DAILY, (Reported) Metoprolol Succinate (Metoprolol Succinate), 1 TAB PO DAILY, (Reported) Pantoprazole Sodium (Pantoprazole Sodium), 1 TAB PO QAM, (Reported) Spironolactone (Spironolactone), 2 TAB PO DAILY, (Reported) Miscellaneous Medications Naltrexone Hcl (Naltrexone Hcl), 1 TAB PO, (Reported) Rosuvastatin Calcium (Rosuvastatin Calcium), 1 TAB PO, (Reported) Past Medical History Past Medical History: Congestive Heart Failure, Asthma Past Surgical History: abdominal surgery, other Alcohol Use: Occasionally Drug Use: marijuana Lives with: Family Lives In: Home Occupation: employed Review of Systems ROS As stated above in the HPI, otherwise all systems are reviewed and negative. Physical Exam Vital Signs: Temperature: 98.2, Source: Oral, Heart Rate: 86, Respiratory Rate: 16, BP: 124/67, Pulse Oximetry: 98, Weight: 97.600 Oxygen Flow Rate: 0 Physical Exam VITALS: Reviewed and as above. GENERAL: Alert, no apparent distress. HEENT: Normocephalic, atraumatic, PERRL, EOMI, dry mucosa, no erythema RESPIRATORY: Lungs clear, normal breath sounds, no respiratory distress. CHEST: No accessory muscle use, no retractions CV: Regular rate, rhythm, no edema, no murmur, No: JVD GI: Soft, non-tender, bowels sounds present, no rebound, guarding, or rigidity BACK: No CVA tenderness, or swelling MUSCULOSKELETAL No deformities, no edema noted to the left knee reduced range of motion with examination positive varus valgus on examination. SKIN: Warm and dry, no rash NEURO: Oriented x4, No motor or sensory deficit PSYCH: Normal mood and affect, no agitation Progress Results/Orders Results/Orders Vital Signs 10/22/24 12:32 Temp 98.2 Pulse 86 Resp 16 B/P (MAP) 124/67 Pulse Ox 98 O2 Flow Rate 0 Medical Decision Making Findings Patient presents with patient name pain. Given history, exam and workup patient likely has soft tissue injury and bruising. I have low suspicion for fracture, dislocation, significant septic arthritis, gout flare, new autoimmune arthropathy, or gonococcal arthropathy. Slight concern for ligamentous injury based on varus valgus test. Patient will follow up with primary care provider and orthopedics. Patient will return to the emergency department with any worsening of his current symptoms or any additional concerning symptoms i.e. increased swelling increased pain redness to the joint or area significant swelling that inhibits bending of the joint fevers or any other concerning symptoms. Departure Disposition: HOME / SELF CARE / HOMELESS Impression: Primary Impression: Knee pain Additional Impression: Sprain of knee Condition: Stable Discharge Instructions: Acute Knee Pain, Adult, Knee Sprain, Adult Additional Instructions: Patient presents with patient name pain. Given history, exam and workup patient likely has soft tissue injury and bruising. I have low suspicion for fracture, dislocation, significant septic arthritis, gout flare, new autoimmune arthropathy, or gonococcal arthropathy. Slight concern for ligamentous injury based on varus valgus test. Patient will follow up with primary care provider and orthopedics. Patient will return to the emergency department with any worsening of his current symptoms or any additional concerning symptoms i.e. increased swelling increased pain redness to the joint or area significant swelling that inhibits bending of the joint fevers or any other concerning symptoms. Rest ice elevation as tolerated. Tylenol and ibuprofen for discomfort. Patient will remain in brace and use crutches until he follows up with primary care provider and orthopedics. Departure Forms: Excuse form Work or School Excused From: Work Excuse beginning now through the following date: Oct 25, 2024 May Return but still avoid physical Activity from now until: Oct 22, 2024 May Return to full physical activity as of: Oct 25, 2024 Referrals: NO PRIMARY CARE PROVIDER (PCP) Education Educated: Patient Educated regarding: diagnosis, treatment, need for follow up Signature Scribe Signature: A Attestation: Scribed for Cindy Motta by JORGE Mesa . 10/22/24 15:12 CINDY MOTTA Oct 22, 2024 15:03
== END 2024-10-22 15:22 | disposition home or self-care (01) ==
LOC: ER 12:16
DX: S83.92XA Sprain of unspecified site of left knee, initial encounter (principal); I50.9 Heart failure, unspecified; J45.909 Unspecified asthma, uncomplicated; F12.90 Cannabis use, unspecified, uncomplicated; Z88.8 Allergy status to other drugs, medicaments and biological substances; X58.XXXA Exposure to other specified factors, initial encounter; Y93.67 Activity, basketball; Y92.89 Other specified places as the place of occurrence of the external cause; Y99.8 Other external cause status
CPT/HCPCS: 73564; 99283